=== PATIENT | female | born 1975 | race Hispanic/Latino ===

== ENCOUNTER 2017-06-28 14:10 | Emergency (ER) | payer OTHER | END 2017-06-28 15:40 | disposition home or self-care (01) | LOC: ERS 14:10 | DX: L03.311 Cellulitis of abdominal wall (principal); D89.9 Disorder involving the immune mechanism, unspecified; I10 Essential (primary) hypertension; Z79.891 Long term (current) use of opiate analgesic; Z79.899 Other long term (current) drug therapy | CPT/HCPCS: 93005 ==